=== PATIENT | male | born 1980 | race Caucasian/White ===

== ENCOUNTER 2017-08-17 17:35 | Emergency (ER) | payer OTHER ==
[~2017-08-17] VITALS: Ht 177.8 cm; Wt 77.1 kg
[~2017-08-17 17:35] MED LIST: BENTYL20 MG PO; Laxative; NORCO 5-325 TA1 EACH
[2017-08-17 18:33] LABS: ABSOLUTE BASOPHILS 0.1 thou/uL (0.0-0.2); ABSOLUTE EOSINOPHILS 0.1 thou/uL (0.0-0.7); ABSOLUTE LYMPHOCYTES 3.2 thou/uL (0.8-5.3); ABSOLUTE MONOCYTES 0.5 thou/uL (0.0-1.2); ABSOLUTE NEUTROPHILS 2.3 thou/uL (1.6-8.1); BASOPHILS 0.8 %; EOSINOPHILS 1.6 %; HEMATOCRIT 39.2 % (42.0-52.0); HEMOGLOBIN 13.4 gm/dL (14.0-18.0); LYMPHOCYTES 51.8 %; MCH 29.9 pg (26.0-34.0); MCHC 34.1 g/dL (28.0-37.0); MCV 87.5 fL (80.0-100.0); MONOCYTES 8.6 %; MPV 8.1 fl. (7.2-11.1); NUCLEATED RBCS 0 /100WBC; PLATELET COUNT* 202 thou/uL (150-400); POLYS 37.2 %; RBC 4.48 mil/uL (4.50-6.00); WBC 6.2 thou/uL (4.0-11.0)
[2017-08-17 18:49] LABS: ALBUMIN 3.8 g/dL (3.4-5.0); ALKALINE PHOSPHATASE 60 U/L (46-116); ANION GAP 4 mmol/L (7-16); CALCIUM 8.6 mg/dL (8.5-10.1); CHLORIDE 104 mmol/L (98-107); CO2 33 mmol/L (21-32); GLUCOSE 90 mg/dL (70-99); POTASSIUM 3.9 mmol/L (3.5-5.1); SGOT 22 U/L (15-37); SGPT 56 U/L (30-65); SODIUM 141 mmol/L (136-145); TOTAL BILIRUBIN 0.7 mg/dL (<0.1-1.0); TOTAL PROTEIN 7.3 g/dL (6.4-8.2); TROPONIN-I LEVEL <0.06 ng/mL (<0.06)
[2017-08-17 18:56] LABS: BUN 15 mg/dL (7-18)
[2017-08-17 19:33] VITALS: BP 147/97
--- NOTE | 2017-08-19 13:03 | EKG ---
[place] [address] ELECTROCARDIOGRAM REPORT Name: FRANK ACOSTA Room: [facility]#: [id number] Admission: 08/17/17 Attend Phys: Discharge: 08/17/17 Date of : 82 Report #: [id number] THIS REPORT FOR: //name// [facility] ED Test Date: 2017-08-17 Test Time: 18:12:16 Pat Name: FRANK ACOSTA Department: Room: Gender: M Varnish Filterer: PASCUAL : 1980 Requested By: Yani Herndon Order Number: [id number] MD: Robert Esteban Measurements Intervals [place] Rate: 70 P: 19 ND: 143 QRS: 7 QRSD: 88 T: 25 QT: 371 QTc: 401 Interpretive Statements Sinus rhythm consider prior ,old anterior CT Compared to ECG 11/12/2015 00:00:43 Right ventricular hypertrophy now present RSR' in V1 or V2 now present ST (T wave) deviation now present Electronically Signed On 08-19-2017 13:03:47 QUALITY ASSURANCE DIRECTOR by Robert Esteban [email or web address] <ELECTRONICALLY SIGNED> By: Robert Esteban MD, FAC 08/19/17 1303 11 11 Robert Esteban MD, [facility] /EPI
== END 2017-08-17 19:34 | disposition home or self-care (01) ==
LOC: M.ERS 17:35
PROVIDERS: Nurse Practitioner Family
DX: R07.89 Other chest pain (principal); F17.210 Nicotine dependence, cigarettes, uncomplicated; Z90.49 Acquired absence of other specified parts of digestive tract

== ENCOUNTER → 2018-10-06 | Outpatient (CLI) | payer OTHER | LOC: M.CT 07:43 | DX: Z13.6 Encounter for screening for cardiovascular disorders (principal) ==

== ENCOUNTER 2019-02-20 02:37 | Emergency (ER) | payer OTHER | END 2019-02-20 03:00 | LOC: M.ERS 02:37 | DX: Z02.89 Encounter for other administrative examinations (principal) ==